=== PATIENT | female | born 1975 | race African-American/Black ===

== ENCOUNTER 2021-11-12 06:00 | Emergency (ER) | payer MEDICAID ==
[~2021-11-12] VITALS: Ht 180.3 cm; Wt 75.0 kg
[2021-11-12 06:03] VITALS: BP 156/86
== END 2021-11-12 08:12 | disposition home or self-care (01) ==
LOC: ER 06:00
DX: R53.1 Weakness (principal); R42 Dizziness and giddiness; Z00.00 Encounter for general adult medical examination without abnormal findings; Z90.710 Acquired absence of both cervix and uterus
CPT/HCPCS: 93005; 99283